=== PATIENT | male | born 1985 | race Caucasian/White ===

== ENCOUNTER → 2016-10-20 | Emergency (ER) | payer SELFPAY ==
[~2016-10-20] MED LIST: OSELTAMIVIR PHOSPHATE 75 MG CAP PO ONE
[2016-10-20 11:19] VITALS: BP 142/88; PULSE 107; RESP 20; TEMP 99.3; O2SAT 94
--- NOTE | 2016-10-20 11:48 | UCPHY ---
H & P Time Seen by Provider: 10/20/16 11:42 Patient Type: New HPI/ROS: This patient presents with fever, myalgias, cough and fatigue which began yesterday. His temperature has been as high as 38 degrees centigrade. He denies sore throat, ear pain, chest pain or shortness of breath. Smoking Status: Heavy smoker Physical Exam: GENERAL: Well-appearing, well-nourished and in mild discomfort HEAD: Atraumatic, normocephalic. EYES: sclera anicteric, conjunctiva are normal. ENT: TMs normal, nares patent, oropharynx clear without exudates. Moist mucous membranes. NECK: Normal range of motion, supple without lymphadenopathy or JVD. LUNGS: Breath sounds clear to auscultation bilaterally and equal. No wheezes rales or rhonchi. HEART: Regular rate and rhythm NEUROLOGICAL: Cranial nerves II through XII grossly intact. Normal speech, normal gait. PSYCH: Normal mood, normal affect. SKIN: Warm, dry, normal turgor, no visible rashes or lesions. Constitutional: Initial Vital Signs Temperature (C) 37.4 C 10/20/16 11:14 Heart Rate 107 H 10/20/16 11:14 Respiratory Rate 20 10/20/16 11:14 Blood Pressure 142/88 H 10/20/16 11:14 O2 Sat (%) 94 10/20/16 11:14 O2 Delivery Mode Room Air Home Medications: Medication Instructions Recorded Oseltamivir Phosphate [Tamiflu 75 75 mg PO BID #9 cap 10/20/16 mg (RX)] Medical Decision Making - Data Points Laboratory Results: 10/20/16 10/20/16 10/20/16 Unknown 11:15 11:15 Influenza Typ A,B (DFA) POSITIVE FOR FLU A H (NEGATIVE) Group A Strep Screen NEGATIVE (NEGATIVE) Group A Strep DNA Pending Departure - Departure Disposition: Home, Routine, Self-Care Clinical Impression: Influenza A Condition: Good Instructions: Influenza (ED) Additional Instructions: If your symptoms have not improved in 5 or 6 days you should be re-evaluated. Keep herself well hydrated but do not force herself to eat. Adult Pain & Fever Control: We recommend Acetaminophen (Tylenol) and Ibuprofen (Motrin, Advil) for pain and fever control. When fever is high or pain severe, both drugs can be used at the same time, but at different intervals. Please note the time differences. Your dose is: Acetaminophen [650]mg every 4 to 6 hours ibuprofen [600]mg every [6] hours with food OR naproxen Sodium (Aleve) [440]mg every 12 hours. Note: do not take Acetaminophen with Hydrocodone (Vicodin, Lortab) or Oxycodone (Percocet). These medications also contain Acetaminophen. No more than 3000 mg of Acetaminophen should be taken in 24 hours (for an adult) . The maximal dose of ibuprofen that it is safe in a 24-hour period is 2400 mg. You may take 400 mg every 4 hours, 600 mg every 6 hours or 800 mg every 8 hours safely. Referrals: Doctor Not,On Staff, MD [Primary Care Provider] - As per Instructions Prescriptions: Oseltamivir Phosphate [Tamiflu 75 mg (RX)] 75 mg PO BID #9 cap - PQRS PQRS Measurement: Not applicable
== END | disposition home or self-care (01) ==
LOC: CED 10:41
DX: J10.1 Influenza due to other identified influenza virus with other respiratory manifestations (principal); Z72.0 Tobacco use
CPT/HCPCS: 87400-PO; 87880-PO; 99203-PO; G0463-PO